=== PATIENT | male | born 1945 | race Caucasian/White ===

== ENCOUNTER 2019-11-09 19:51 | Inpatient (IN) | payer OTHER, MEDICARE ==
[~2019-11-09] VITALS: Ht 190.5 cm; Wt 127.0 kg
[~2019-11-09 19:51] MED LIST: Aspirin325 MG PO; CHLO25B PO; DIPH50 PO; DOXA2 PO; FISH1000; FISH1000 PO; FURO20 PO; Flunisolide25 ML NS; GLUC500 PO; Humulin N100 UNIT/1 SQ; INSLI100I SC; LISI20 PO; LORA10 PO; METF500 PO; METO100ER PO; METR70GEL; Multivitamin1 EAC1 PO; NIFE60ER PO; NOVOLIN R100 UNIT/2; Prilosec20 MG PO; SIMV40 PO; VANICREAM; WARF3 PO
[2019-11-09] MEDS ORDERED: AMOX875 PO (20:17)
[2019-11-09] MEDS ORDERED: ATOR20 PO (20:18)
[2019-11-09] MEDS ORDERED: Voltaren100 GM TOP (20:19)
[2019-11-09] MEDS ORDERED: DOXY100 PO (20:20)
[2019-11-09] MEDS ORDERED: FLUT1DIS2 INH (20:21)
[2019-11-09] MEDS ORDERED: PRED5 PO (20:22)
[2019-11-09] MEDS ORDERED: POTCHL20ER PO ×2 (20:22→22:40)
[2019-11-09] MEDS ORDERED: SPIR25 PO ×2 (20:23→22:39)
[2019-11-09] MEDS ORDERED: TAMS.4ER PO (20:23)
[2019-11-09 20:26] LABS: BASOPHILS ABSOLUTE AUTO 0.05 K/mm3 (0.00-0.23); BASOPHILS PERCENT AUTO 0 % (0-2); EOSINOPHILS PERCENT AUTO 0 % (0-6); Hematocrit 37.6 % (37.0-53.0); Hemoglobin 11.9 g/dL (13.5-17.5); IMMATURE GRAN ABSOLUTE AUTO 0.04 K/mm3 (0.00-0.10); IMMATURE GRAN PERCENT AUTO 0 % (0-1); LYMPHOCYTES ABSOLUTE AUTO 0.28 K/mm3 (0.84-5.20); LYMPHOCYTES PERCENT AUTO 3 % (21-46); MONOCYTES ABSOLUTE AUTO 0.57 K/mm3 (0.16-1.47); MONOCYTES PERCENT AUTO 5 % (4-13); Mean Corpuscular HGB 27.6 pg (26.0-34.0); Mean Corpuscular HGB Conc 31.6 g/dL (31.5-36.5); Mean Corpuscular Volume 87 fL (80-100); Mean Platelet Volume 9.4 fL (9.1-12.4); NEUTROPHILS ABSOLUTE AUTO 10.28 K/mm3 (1.96-9.15); NEUTROPHILS PERCENT AUTO 92 % (41-73); Platelet Count 199 K/mm3 (150-400); RDW Standard Deviation 45.1 fL (35.1-46.3); Red Blood Cell Count 4.31 M/mm3 (4.30-5.90); White Blood Cell Count 11.22 K/mm3 (4.00-11.30)
[2019-11-09 20:43] LABS: Albumin, Blood 2.5 g/dL (3.4-5.0); Albumin/Globulin Ratio 0.5 (0.8-1.8); Bilirubin, Total 0.9 mg/dL (0.1-1.0); Bun/Creatinine Ratio 18.8 (12.0-20.0); Calcium, Blood 8.4 mg/dL (8.5-10.1); Creatinine, Blood 1.65 mg/dL (0.60-1.20); Globulin, Blood 5.2 g/dL (2.2-4.0); Total Protein, Blood 7.7 g/dL (6.4-8.2)
[2019-11-09 21:56] LABS: International Normalized Ratio 2.94; Prothrombin Time Results 29.6 Sec (9.7-11.5)
[2019-11-09] MEDS ORDERED: WARF5 PO ×2 (22:00)
[2019-11-10 04:47] LABS: BASOPHILS ABSOLUTE AUTO 0.07 K/mm3 (0.00-0.23); BASOPHILS PERCENT AUTO 1 % (0-2); EOSINOPHILS PERCENT AUTO 0 % (0-6); Hematocrit 34.5 % (37.0-53.0); Hemoglobin 10.6 g/dL (13.5-17.5); IMMATURE GRAN ABSOLUTE AUTO 0.05 K/mm3 (0.00-0.10); IMMATURE GRAN PERCENT AUTO 1 % (0-1); LYMPHOCYTES ABSOLUTE AUTO 0.56 K/mm3 (0.84-5.20); LYMPHOCYTES PERCENT AUTO 5 % (21-46); MONOCYTES ABSOLUTE AUTO 0.68 K/mm3 (0.16-1.47); MONOCYTES PERCENT AUTO 6 % (4-13); Mean Corpuscular HGB 26.9 pg (26.0-34.0); Mean Corpuscular HGB Conc 30.7 g/dL (31.5-36.5); Mean Corpuscular Volume 88 fL (80-100); Mean Platelet Volume 9.3 fL (9.1-12.4); NEUTROPHILS ABSOLUTE AUTO 9.23 K/mm3 (1.96-9.15); NEUTROPHILS PERCENT AUTO 87 % (41-73); Platelet Count 189 K/mm3 (150-400); RDW Standard Deviation 45.5 fL (35.1-46.3); Red Blood Cell Count 3.94 M/mm3 (4.30-5.90); White Blood Cell Count 10.59 K/mm3 (4.00-11.30)
[2019-11-10 05:18] LABS: Bun/Creatinine Ratio 20.3 (12.0-20.0); Creatinine, Blood 1.53 mg/dL (0.60-1.20); Potassium, Blood 4.7 mmol/L (3.5-5.5)
[2019-11-10 13:35] LABS: CPK Creatine Kinase 187 U/L (39-308)
[2019-11-10 13:36] LABS: C-REACTIVE PROTEIN, EXT RANGE >19.000 mg/dL (0.000-0.300)
[2019-11-10 17:34] LABS: International Normalized Ratio 3.41
[2019-11-10 21:26] LABS: Vancomycin, Trough 18.4 ug/mL (5.0-10.0)
[2019-11-11 04:18] LABS: BASOPHILS ABSOLUTE AUTO 0.06 K/mm3 (0.00-0.23); BASOPHILS PERCENT AUTO 1 % (0-2); EOSINOPHILS ABSOLUTE AUTO 0.05 K/mm3 (0.00-0.68); EOSINOPHILS PERCENT AUTO 1 % (0-6); Hematocrit 32.9 % (37.0-53.0); Hemoglobin 10.2 g/dL (13.5-17.5); IMMATURE GRAN ABSOLUTE AUTO 0.05 K/mm3 (0.00-0.10); IMMATURE GRAN PERCENT AUTO 1 % (0-1); LYMPHOCYTES ABSOLUTE AUTO 0.66 K/mm3 (0.84-5.20); LYMPHOCYTES PERCENT AUTO 6 % (21-46); MONOCYTES ABSOLUTE AUTO 0.72 K/mm3 (0.16-1.47); MONOCYTES PERCENT AUTO 7 % (4-13); Mean Corpuscular HGB 27.1 pg (26.0-34.0); Mean Corpuscular Volume 88 fL (80-100); Mean Platelet Volume 9.2 fL (9.1-12.4); NEUTROPHILS ABSOLUTE AUTO 8.98 K/mm3 (1.96-9.15); NEUTROPHILS PERCENT AUTO 85 % (41-73); Platelet Count 180 K/mm3 (150-400); RDW Coefficient Variation 14.1 % (11.7-14.2); RDW Standard Deviation 45.1 fL (35.1-46.3); Red Blood Cell Count 3.76 M/mm3 (4.30-5.90); White Blood Cell Count 10.52 K/mm3 (4.00-11.30)
[2019-11-11 04:32] LABS: International Normalized Ratio 2.02
[2019-11-11 04:44] LABS: Albumin, Blood 1.9 g/dL (3.4-5.0); Anion Gap 5 mmol/L (6-16); Blood Urea Nitrogen 34 mg/dL (8-24); Bun/Creatinine Ratio 22.1 (12.0-20.0); CO2, Blood 25 mmol/L (21-32); Chloride, Blood 105 mmol/L (98-108); Creatinine, Blood 1.54 mg/dL (0.60-1.20); Glomerular Filtration Rate 47 (60-); Glucose, Blood 309 mg/dL (70-99); Phosphorus, Blood 2.4 mg/dL (2.5-4.9); Potassium, Blood 4.7 mmol/L (3.5-5.5); Sodium, Blood 135 mmol/L (136-145)
[2019-11-11 04:59] LABS: Prothrombin Time Results 20.8 Sec (9.7-11.5)
[2019-11-11 21:55] LABS: Vancomycin, Trough 21.2 ug/mL (5.0-10.0)
[2019-11-12 05:55] LABS: BASOPHILS ABSOLUTE AUTO 0.06 K/mm3 (0.00-0.23); BASOPHILS PERCENT AUTO 1 % (0-2); EOSINOPHILS ABSOLUTE AUTO 0.11 K/mm3 (0.00-0.68); EOSINOPHILS PERCENT AUTO 1 % (0-6); Hematocrit 32.5 % (37.0-53.0); Hemoglobin 9.8 g/dL (13.5-17.5); IMMATURE GRAN ABSOLUTE AUTO 0.07 K/mm3 (0.00-0.10); IMMATURE GRAN PERCENT AUTO 1 % (0-1); LYMPHOCYTES ABSOLUTE AUTO 0.93 K/mm3 (0.84-5.20); LYMPHOCYTES PERCENT AUTO 10 % (21-46); MONOCYTES ABSOLUTE AUTO 0.57 K/mm3 (0.16-1.47); MONOCYTES PERCENT AUTO 6 % (4-13); Mean Corpuscular HGB Conc 30.2 g/dL (31.5-36.5); Mean Corpuscular Volume 90 fL (80-100); Mean Platelet Volume 9.6 fL (9.1-12.4); NEUTROPHILS ABSOLUTE AUTO 7.51 K/mm3 (1.96-9.15); NEUTROPHILS PERCENT AUTO 81 % (41-73); Platelet Count 196 K/mm3 (150-400); RDW Coefficient Variation 14.2 % (11.7-14.2); RDW Standard Deviation 46.3 fL (35.1-46.3); Red Blood Cell Count 3.63 M/mm3 (4.30-5.90); White Blood Cell Count 9.25 K/mm3 (4.00-11.30)
[2019-11-12 06:09] LABS: Bun/Creatinine Ratio 25.2 (12.0-20.0); Calcium, Blood 8.2 mg/dL (8.5-10.1); Creatinine, Blood 1.59 mg/dL (0.60-1.20); Potassium, Blood 4.5 mmol/L (3.5-5.5)
[2019-11-13 05:12] LABS: BASOPHILS ABSOLUTE AUTO 0.07 K/mm3 (0.00-0.23); BASOPHILS PERCENT AUTO 1 % (0-2); EOSINOPHILS ABSOLUTE AUTO 0.21 K/mm3 (0.00-0.68); EOSINOPHILS PERCENT AUTO 2 % (0-6); Hemoglobin 10.2 g/dL (13.5-17.5); IMMATURE GRAN ABSOLUTE AUTO 0.08 K/mm3 (0.00-0.10); IMMATURE GRAN PERCENT AUTO 1 % (0-1); LYMPHOCYTES ABSOLUTE AUTO 1.04 K/mm3 (0.84-5.20); LYMPHOCYTES PERCENT AUTO 12 % (21-46); MONOCYTES ABSOLUTE AUTO 0.57 K/mm3 (0.16-1.47); MONOCYTES PERCENT AUTO 6 % (4-13); Mean Corpuscular HGB Conc 31.9 g/dL (31.5-36.5); Mean Corpuscular Volume 88 fL (80-100); Mean Platelet Volume 9.5 fL (9.1-12.4); NEUTROPHILS ABSOLUTE AUTO 6.93 K/mm3 (1.96-9.15); NEUTROPHILS PERCENT AUTO 78 % (41-73); Platelet Count 237 K/mm3 (150-400); RDW Coefficient Variation 14.1 % (11.7-14.2); RDW Standard Deviation 45.2 fL (35.1-46.3); Red Blood Cell Count 3.64 M/mm3 (4.30-5.90)
[2019-11-13 05:32] LABS: International Normalized Ratio 1.18; Prothrombin Time Results 12.5 Sec (9.7-11.5)
[2019-11-13 05:38] LABS: Anion Gap 8 mmol/L (6-16); Blood Urea Nitrogen 36 mg/dL (8-24); Bun/Creatinine Ratio 26.1 (12.0-20.0); CO2, Blood 24 mmol/L (21-32); Calcium, Blood 8.2 mg/dL (8.5-10.1); Chloride, Blood 106 mmol/L (98-108); Creatinine, Blood 1.38 mg/dL (0.60-1.20); Glomerular Filtration Rate 53 (60-); Glucose, Blood 303 mg/dL (70-99); Potassium, Blood 4.3 mmol/L (3.5-5.5); Sodium, Blood 138 mmol/L (136-145)
[2019-11-14 06:23] LABS: BASOPHILS ABSOLUTE AUTO 0.07 K/mm3 (0.00-0.23); BASOPHILS PERCENT AUTO 1 % (0-2); EOSINOPHILS ABSOLUTE AUTO 0.25 K/mm3 (0.00-0.68); EOSINOPHILS PERCENT AUTO 3 % (0-6); Hematocrit 32.1 % (37.0-53.0); Hemoglobin 10.1 g/dL (13.5-17.5); IMMATURE GRAN PERCENT AUTO 1 % (0-1); LYMPHOCYTES PERCENT AUTO 14 % (21-46); MONOCYTES PERCENT AUTO 7 % (4-13); Mean Corpuscular HGB 27.3 pg (26.0-34.0); Mean Corpuscular HGB Conc 31.5 g/dL (31.5-36.5); Mean Corpuscular Volume 87 fL (80-100); Mean Platelet Volume 9.2 fL (9.1-12.4); NEUTROPHILS ABSOLUTE AUTO 5.73 K/mm3 (1.96-9.15); NEUTROPHILS PERCENT AUTO 74 % (41-73); Platelet Count 273 K/mm3 (150-400); RDW Coefficient Variation 14.3 % (11.7-14.2); RDW Standard Deviation 45.1 fL (35.1-46.3); White Blood Cell Count 7.75 K/mm3 (4.00-11.30)
[2019-11-14 06:37] LABS: International Normalized Ratio 1.36; Prothrombin Time Results 14.3 Sec (9.7-11.5)
[2019-11-14 06:38] LABS: Bun/Creatinine Ratio 24.4 (12.0-20.0); Calcium, Blood 8.2 mg/dL (8.5-10.1); Creatinine, Blood 1.31 mg/dL (0.60-1.20); Potassium, Blood 4.3 mmol/L (3.5-5.5)
[2019-11-14] MEDS ORDERED: NOVOLIN N100 UNIT/2 SC (11:30)
[2019-11-14] MEDS ORDERED: AMOCLA875 PO (11:31)
[2019-11-14] MEDS ORDERED: PROBIOTIC250 MG PO (12:16)
[2019-11-14] MEDS ORDERED: AMOX500 PO (12:16)
[2019-11-14] MEDS ORDERED: AMOCLA500 PO (12:17)
== END 2019-11-14 13:20 | disposition home or self-care (01) | DRG 854 ==
LOC: ER 19:51 → ERHOLD 23:07 → PCU 23:07 → SURS 23:07 → PCU 11-10 01:23 → SURS 11-12 10:50
PROVIDERS: Internal Medicine; Nurse Practitioner Acute Care; Physician Assistant; Podiatrist; ADMIT Internal Medicine
PROC: 0Y6P0Z0 Detachment at Right 1st Toe, Complete, Open Approach (ICD-10-PCS; principal; 2019-11-11 08:00)
DX: A41.01 Sepsis due to Methicillin susceptible Staphylococcus aureus (principal); M86.171 Other acute osteomyelitis, right ankle and foot; I48.21 Permanent atrial fibrillation; N17.9 Acute kidney failure, unspecified; R65.20 Severe sepsis without septic shock; E11.621 Type 2 diabetes mellitus with foot ulcer; I12.9 Hypertensive chronic kidney disease with stage 1 through stage 4 chronic kidney disease, or unspecified chronic kidney disease; E11.22 Type 2 diabetes mellitus with diabetic chronic kidney disease; N18.3 Chronic kidney disease, stage 3 (moderate); E11.42 Type 2 diabetes mellitus with diabetic polyneuropathy; M10.9 Gout, unspecified; E11.628 Type 2 diabetes mellitus with other skin complications; L03.031 Cellulitis of right toe; Z79.4 Long term (current) use of insulin; E78.00 Pure hypercholesterolemia, unspecified; Z87.891 Personal history of nicotine dependence; K21.9 Gastro-esophageal reflux disease without esophagitis; N40.0 Benign prostatic hyperplasia without lower urinary tract symptoms
CPT/HCPCS: 36415; 73630; 73701; 80048; 80053; 80069; 80202; 82550; 82947; 83605; 85025; 85610; 85651; 86140; 87040; 87071; 87075; 87077; 87147; 87186; 87205; 88305; 88311; 93005; 93010; 93922; 94640; 94760; 96365; 96366; 96367; 97116; 97161; 97164; 97165; 97535; 99284-25; A9270-GY; J0696; J1815; J2250; J2370; J2405; J2704; J3010; J3370; J7030; J7050; J7512; Q9967

== ENCOUNTER 2020-05-05 16:31 | Observation (INO) | payer OTHER ==
[~2020-05-05] VITALS: Ht 190.5 cm; Wt 132.4 kg
[~2020-05-05 16:31] MED LIST changes: +AMOCLA500 PO; +AMOCLA875 PO; +AMOX500 PO; +AMOX875 PO; +DOXY100 PO; +FLUT1DIS2 INH; -LISI20 PO; -LORA10 PO; -METO100ER PO; -Multivitamin1 EAC1 PO; -NOVOLIN R100 UNIT/2; +POTCHL20ER PO; +PRED5 PO; +PROBIOTIC250 MG PO; -Prilosec20 MG PO; +SPIR25 PO; +WARF5 PO
[2020-05-05 16:56] LABS: BASOPHILS ABSOLUTE AUTO 0.03 K/mm3 (0.00-0.23); BASOPHILS PERCENT AUTO 0 % (0-2); EOSINOPHILS ABSOLUTE AUTO 0.07 K/mm3 (0.00-0.68); EOSINOPHILS PERCENT AUTO 1 % (0-6); Hematocrit 31.3 % (37.0-53.0); Hemoglobin 9.8 g/dL (13.5-17.5); IMMATURE GRAN ABSOLUTE AUTO 0.05 K/mm3 (0.00-0.10); IMMATURE GRAN PERCENT AUTO 1 % (0-1); LYMPHOCYTES ABSOLUTE AUTO 0.85 K/mm3 (0.84-5.20); LYMPHOCYTES PERCENT AUTO 10 % (21-46); MONOCYTES ABSOLUTE AUTO 0.65 K/mm3 (0.16-1.47); MONOCYTES PERCENT AUTO 8 % (4-13); Mean Corpuscular HGB 28.3 pg (26.0-34.0); Mean Corpuscular HGB Conc 31.3 g/dL (31.5-36.5); Mean Corpuscular Volume 91 fL (80-100); Mean Platelet Volume 10.1 fL (9.1-12.4); NEUTROPHILS ABSOLUTE AUTO 6.99 K/mm3 (1.96-9.15); NEUTROPHILS PERCENT AUTO 81 % (41-73); Platelet Count 236 K/mm3 (150-400); RDW Coefficient Variation 14.7 % (11.7-14.2); RDW Standard Deviation 48.9 fL (35.1-46.3); Red Blood Cell Count 3.46 M/mm3 (4.30-5.90); White Blood Cell Count 8.64 K/mm3 (4.00-11.30)
[2020-05-05 17:13] LABS: Alanine Aminotransfer (ALT/SGP 13 U/L (12-78); Albumin, Blood 2.7 g/dL (3.4-5.0); Albumin/Globulin Ratio 0.5 (0.8-1.8); Alk Phos 97 U/L (50-136); Anion Gap 6 mmol/L (6-16); Aspartate Aminotrans (AST/SGOT 29 U/L (12-37); Bilirubin, Total 1.4 mg/dL (0.1-1.0); Blood Urea Nitrogen 49 mg/dL (8-24); CO2, Blood 27 mmol/L (21-32); Calcium, Blood 8.9 mg/dL (8.5-10.1); Chloride, Blood 105 mmol/L (98-108); Creatinine, Blood 1.96 mg/dL (0.60-1.20); Globulin, Blood 5.1 g/dL (2.2-4.0); Glomerular Filtration Rate 36 (60-); Glucose, Blood 172 mg/dL (70-99); Potassium, Blood 4.4 mmol/L (3.5-5.5); Sodium, Blood 138 mmol/L (136-145); Total Protein, Blood 7.8 g/dL (6.4-8.2); Troponin I <0.015 ng/mL (0.000-0.040)
[2020-05-05 17:17] LABS: PCO2 Arterial 30.6 mmHg (35-45); PO2 Arterial 79.1 mmHg (80-100); pH Blood Arterial 7.53 (7.35-7.45)
[2020-05-05] MEDS ORDERED: ATOR20 PO (18:43)
[2020-05-05] MEDS ORDERED: ALOGLIPTIN12.5 M1 PO (18:44)
[2020-05-05] MEDS ORDERED: ALLO300 PO (18:44)
[2020-05-05] MEDS ORDERED: Voltaren100 GM TOP (18:44)
[2020-05-05] MEDS ORDERED: Flonase 0.05% N16 GM (18:45)
[2020-05-05] MEDS ORDERED: OXYC5 PO (18:46)
[2020-05-05] MEDS ORDERED: FURO40 PO (18:47)
[2020-05-05] MEDS ORDERED: NOVOLIN N100 UNIT/2 SC (18:49)
[2020-05-05] MEDS ORDERED: NOVOLIN R100 UNIT/2 SC (18:49)
[2020-05-05] MEDS ORDERED: ALLERCLEAR10 MG PO (18:50)
[2020-05-05] MEDS ORDERED: LISI20 PO (18:50)
[2020-05-05] MEDS ORDERED: METO50ER PO (18:51)
[2020-05-05] MEDS ORDERED: OMEP20ER PO (18:51)
[2020-05-05] MEDS ORDERED: XARELTO15 M1 PO (18:52)
[2020-05-05] MEDS ORDERED: SPIR25 PO (18:52)
[2020-05-05] MEDS ORDERED: Hair, Skin & N1 EACH PO (18:52)
[2020-05-05] MEDS ORDERED: TAMS.4ER PO (18:53)
[2020-05-05] MEDS ORDERED: CIDAFLEX TABLE1 EAC1 PO (18:58)
[2020-05-05] MEDS ORDERED: GLUCOSE4 GM PO (18:59)
[2020-05-05] MEDS ORDERED: Metrogel 1% 6060 GM TOP (18:59)
[2020-05-06 05:09] LABS: BASOPHILS ABSOLUTE AUTO 0.04 K/mm3 (0.00-0.23); BASOPHILS PERCENT AUTO 1 % (0-2); EOSINOPHILS ABSOLUTE AUTO 0.13 K/mm3 (0.00-0.68); EOSINOPHILS PERCENT AUTO 2 % (0-6); Hematocrit 28.7 % (37.0-53.0); Hemoglobin 8.8 g/dL (13.5-17.5); IMMATURE GRAN ABSOLUTE AUTO 0.04 K/mm3 (0.00-0.10); IMMATURE GRAN PERCENT AUTO 1 % (0-1); LYMPHOCYTES ABSOLUTE AUTO 1.23 K/mm3 (0.84-5.20); LYMPHOCYTES PERCENT AUTO 15 % (21-46); MONOCYTES ABSOLUTE AUTO 0.73 K/mm3 (0.16-1.47); MONOCYTES PERCENT AUTO 9 % (4-13); Mean Corpuscular HGB 27.8 pg (26.0-34.0); Mean Corpuscular HGB Conc 30.7 g/dL (31.5-36.5); Mean Corpuscular Volume 91 fL (80-100); Mean Platelet Volume 9.6 fL (9.1-12.4); NEUTROPHILS ABSOLUTE AUTO 5.89 K/mm3 (1.96-9.15); NEUTROPHILS PERCENT AUTO 73 % (41-73); Platelet Count 213 K/mm3 (150-400); RDW Coefficient Variation 14.7 % (11.7-14.2); Red Blood Cell Count 3.16 M/mm3 (4.30-5.90); White Blood Cell Count 8.06 K/mm3 (4.00-11.30)
--- NOTE | 2020-05-06 05:19 | NUR ---
SHIFT SUMMARY PT ER ADMIT THIS SHIFT FOR CHF EXAC. PT S/P RECENT LEFT KNEE REPLACEMENT. HE HAS BECOME SEVERELY DECONDITIONED AND IS UNABLE TO AMBULATE OR BEAR WEIGHT. PT HAS NOT HAD ANY COMPLAINTS OF PAIN, AND STATES PAIN ONLY WITH AMBULATION. LUNG SOUNDS ARE DIMINISHED T/O. RESP LABORED WITH EXERTION, HOWEVER SATS WNL ON RA. IV BUMEX ADMINISTERED. NO ACUTE CHANGES TO REPORT SINCE ADMISSION. BED IN LOWEST POSITION, CALL LIGHT WITHIN REACH.
[2020-05-06 05:33] LABS: Albumin, Blood 2.4 g/dL (3.4-5.0); Albumin/Globulin Ratio 0.5 (0.8-1.8); Bilirubin, Total 1.2 mg/dL (0.1-1.0); Bun/Creatinine Ratio 27.8 (12.0-20.0); Calcium, Blood 8.4 mg/dL (8.5-10.1); Creatinine, Blood 1.98 mg/dL (0.60-1.20); Globulin, Blood 4.7 g/dL (2.2-4.0); Potassium, Blood 4.2 mmol/L (3.5-5.5); Total Protein, Blood 7.1 g/dL (6.4-8.2)
--- NOTE | 2020-05-07 05:10 | NUR ---
HELPER TEACHER SUMMARY A/OX4, PLEASANT AND COOPERATIVE WITH CARE. MOD ASSIST WITH FWW. S/P L. TKA, SURGICAL DRESSINGS C/D/I. VSS. NO ACUTE CHANGES AT THIS TIME. BED IN LOWEST POSITION WITH CALL LIGHT IN REACH. WILL CONTINUE TO MONITOR AND REPORT TO ONCOMING RN.
[2020-05-07 05:29] LABS: BASOPHILS ABSOLUTE AUTO 0.05 K/mm3 (0.00-0.23); BASOPHILS PERCENT AUTO 1 % (0-2); EOSINOPHILS ABSOLUTE AUTO 0.14 K/mm3 (0.00-0.68); EOSINOPHILS PERCENT AUTO 2 % (0-6); Hematocrit 31.2 % (37.0-53.0); Hemoglobin 9.7 g/dL (13.5-17.5); IMMATURE GRAN ABSOLUTE AUTO 0.05 K/mm3 (0.00-0.10); IMMATURE GRAN PERCENT AUTO 1 % (0-1); LYMPHOCYTES ABSOLUTE AUTO 0.91 K/mm3 (0.84-5.20); LYMPHOCYTES PERCENT AUTO 11 % (21-46); MONOCYTES ABSOLUTE AUTO 0.78 K/mm3 (0.16-1.47); MONOCYTES PERCENT AUTO 10 % (4-13); Mean Corpuscular HGB 28.2 pg (26.0-34.0); Mean Corpuscular HGB Conc 31.1 g/dL (31.5-36.5); Mean Corpuscular Volume 91 fL (80-100); Mean Platelet Volume 9.8 fL (9.1-12.4); NEUTROPHILS ABSOLUTE AUTO 6.27 K/mm3 (1.96-9.15); NEUTROPHILS PERCENT AUTO 77 % (41-73); Platelet Count 219 K/mm3 (150-400); RDW Coefficient Variation 14.6 % (11.7-14.2); RDW Standard Deviation 48.5 fL (35.1-46.3); Red Blood Cell Count 3.44 M/mm3 (4.30-5.90)
[2020-05-07 06:04] LABS: Bun/Creatinine Ratio 29.9 (12.0-20.0); Calcium, Blood 8.8 mg/dL (8.5-10.1); Creatinine, Blood 2.14 mg/dL (0.60-1.20); Potassium, Blood 4.1 mmol/L (3.5-5.5)
--- NOTE | 2020-05-07 16:29 | NUR ---
Echocardiogram using 0.60ml of Definity contrast performed.
--- NOTE | 2020-05-07 16:44 | NUR ---
SHIFT SUMMARY ORIGINAL PLAN TO DC HOME CANCELLED TODAY PT NEEDS TO GO TO SNF PER PHYSICAL THERAPY EVAL. PT AWARE OF THE PLAN. AMBLULATED WITH THERAPY TWICE TODAY. LARGE BM TODAY. NO ACUTE CHANGES IN ASSESSMENT PRIOR AT THIS TIME. VS REVIEWED & STABLE. PT UP IN CHAIR. VISITING WITH HIS NEPHEW. PT DAUGHTER UPDATED ON PLAN OF CARE TODAY.
--- NOTE | 2020-05-08 04:53 | NUR ---
LAW REPORTER SUMMARY PT A&OX4, ABLE TO MAKE NEEDS KNOWN. PLEASANT AND COOPERATIVE TO CARE. NO C/O PAIN OR ANY DISCOMFORT THIS SHIFT. NO C/O CP, SOB OR N&V. PT CALM AND RESTED IN BED T/O SHIFT. ABLE TO USE URINAL INDEPENDENTLY, DENIES DYSURIA. PT CALM AND RESTED IN RECLINER AT THIS TIME. CALL LIGHT WITHIN REACH.
[2020-05-08 15:05] LABS: Influenza A, PCR Negative (NEGATIVE); Influenza B, PCR Negative (NEGATIVE); Resp Syncytial Virus, PCR Negative (NEGATIVE); SARS-Cov-2 (COVID-19) PCR, MMC Negative (NEGATIVE)
--- NOTE | 2020-05-08 16:39 | NUR ---
DISCHARGE PT DISCHARGED TO [facility]. THIS RN GAVE REPORT TO YONG FERNANDO AT [facility]. PT TRANSFERRED TO [facility] VIA WHEELCHAIR. BELONGINGS WITH PT. IV REMOVED WITHOUT DIFFICULTY.
== END 2020-05-08 16:17 ==
LOC: ER 16:31 → MEDS 16:32 → ER 20:47 → MEDS 21:08
PROVIDERS: Emergency Medicine; Internal Medicine; ADMIT Internal Medicine
DX: R06.00 Dyspnea, unspecified (principal); N17.9 Acute kidney failure, unspecified; E87.3 Alkalosis; I13.0 Hypertensive heart and chronic kidney disease with heart failure and stage 1 through stage 4 chronic kidney disease, or unspecified chronic kidney disease; I50.9 Heart failure, unspecified; N18.30 Chronic kidney disease, stage 3 unspecified; E11.22 Type 2 diabetes mellitus with diabetic chronic kidney disease; I48.20 Chronic atrial fibrillation, unspecified; E78.5 Hyperlipidemia, unspecified; D63.1 Anemia in chronic kidney disease; E78.00 Pure hypercholesterolemia, unspecified; Z88.8 Allergy status to other drugs, medicaments and biological substances; Z79.4 Long term (current) use of insulin; Z79.899 Other long term (current) drug therapy; Z79.01 Long term (current) use of anticoagulants; Z87.891 Personal history of nicotine dependence; Z20.822 Contact with and (suspected) exposure to COVID-19
CPT/HCPCS: 0241U; 36415; 36600; 71045; 78582; 80048; 80053; 82803; 82947; 83880; 84145; 84484; 85025; 85379; 93005; 93010; 93971; 94760; 96374; 96375; 96376; 97110; 97116; 97162; 97166; 97530; 97530-CO; 97535-CO; 98960; 99285-25; A9270; A9540; C8929; G0378; J1815; J1940; J2405; J3010; Q9957

== ENCOUNTER 2020-05-25 17:11 | Emergency (ER) | payer OTHER ==
[~2020-05-25] VITALS: Ht 190.5 cm; Wt 123.4 kg
[~2020-05-25 17:11] MED LIST changes: +ALLERCLEAR10 MG PO; +ALLO300 PO; +ALOGLIPTIN12.5 M1 PO; +ATOR20 PO; +CIDAFLEX TABLE1 EAC1 PO; +FURO40 PO; +Flonase 0.05% N16 GM; +GLUCOSE4 GM PO; +Hair, Skin & N1 EACH PO; +LISI20 PO; +METO50ER PO; +Metrogel 1% 6060 GM TOP; +NOVOLIN N100 UNIT/2 SC; +NOVOLIN R100 UNIT/2 SC; +OMEP20ER PO; +OXYC5 PO; +TAMS.4ER PO; +Voltaren100 GM TOP; +XARELTO15 M1 PO
[2020-05-25] MEDS ORDERED: FLUT.05NI (18:35)
== END 2020-05-25 20:25 | disposition home or self-care (01) ==
LOC: ER 17:11
DX: I95.1 Orthostatic hypotension (principal); I11.0 Hypertensive heart disease with heart failure; I50.9 Heart failure, unspecified; E11.9 Type 2 diabetes mellitus without complications; Z79.4 Long term (current) use of insulin; Z79.899 Other long term (current) drug therapy; Z79.01 Long term (current) use of anticoagulants; Z88.8 Allergy status to other drugs, medicaments and biological substances; I48.91 Unspecified atrial fibrillation; Z87.891 Personal history of nicotine dependence
CPT/HCPCS: 82947; 93005; 93010; 96360; 99284-25; J7030

== ENCOUNTER → 2021-04-29 | Outpatient (CLI) | payer OTHER ==
[~2021-04-29] MED LIST changes: +FLUT.05NI
== END | disposition home or self-care (01) ==
LOC: LAB SHORT 14:30
DX: L97.509 Non-pressure chronic ulcer of other part of unspecified foot with unspecified severity (principal)
CPT/HCPCS: 87070; 87205

== ENCOUNTER → 2021-05-12 | Outpatient (CLI) | payer OTHER | END | disposition home or self-care (01) | LOC: LAB SHORT 15:16 | DX: E11.69 Type 2 diabetes mellitus with other specified complication (principal); E11.51 Type 2 diabetes mellitus with diabetic peripheral angiopathy without gangrene; M86.171 Other acute osteomyelitis, right ankle and foot | CPT/HCPCS: 88305; 88311 ==

== ENCOUNTER → 2022-03-05 | Outpatient (CLI) | payer OTHER | END | disposition home or self-care (01) | LOC: LAB SHORT 14:24 → LAB 14:24 | DX: L97.509 Non-pressure chronic ulcer of other part of unspecified foot with unspecified severity (principal) | CPT/HCPCS: 87070; 87075; 87077; 87147; 87186; 87205 ==

== ENCOUNTER → 2022-04-13 | Outpatient (CLI) | payer OTHER ==
[2022-04-13 13:15] LABS: BASOPHILS ABSOLUTE AUTO 0.04 K/mm3 (0.00-0.23); BASOPHILS PERCENT AUTO 1 % (0-2); EOSINOPHILS ABSOLUTE AUTO 0.08 K/mm3 (0.00-0.68); EOSINOPHILS PERCENT AUTO 2 % (0-6); Hematocrit 40.8 % (37.0-53.0); Hemoglobin 13.3 g/dL (13.5-17.5); IMMATURE GRAN ABSOLUTE AUTO 0.01 K/mm3 (0.00-0.10); IMMATURE GRAN PERCENT AUTO 0 % (0-1); LYMPHOCYTES ABSOLUTE AUTO 0.41 K/mm3 (0.84-5.20); LYMPHOCYTES PERCENT AUTO 8 % (21-46); MONOCYTES ABSOLUTE AUTO 0.46 K/mm3 (0.16-1.47); MONOCYTES PERCENT AUTO 9 % (4-13); Mean Corpuscular HGB 30.9 pg (26.0-34.0); Mean Corpuscular HGB Conc 32.6 g/dL (31.5-36.5); Mean Corpuscular Volume 95 fL (80-100); Mean Platelet Volume 10.6 fL (9.1-12.4); NEUTROPHILS PERCENT AUTO 80 % (41-73); Platelet Count 138 K/mm3 (150-400); RDW Coefficient Variation 15.5 % (11.7-14.2); RDW Standard Deviation 53.2 fL (35.1-46.3)
[2022-04-13 13:33] LABS: Albumin, Blood 2.4 g/dL (3.4-5.0); Albumin/Globulin Ratio 0.5 (0.8-1.8); Bilirubin, Total 1.2 mg/dL (0.1-1.0); Bun/Creatinine Ratio 19.6 (12.0-20.0); Calcium, Blood 8.3 mg/dL (8.5-10.1); Creatinine, Blood 1.84 mg/dL (0.60-1.20); Globulin, Blood 4.6 g/dL (2.2-4.0); Potassium, Blood 4.7 mmol/L (3.5-5.5)
== END | disposition home or self-care (01) ==
LOC: LAB SHORT 12:50 → LAB 12:50
PROVIDERS: Internal Medicine Hematology & Oncology
DX: C22.0 Liver cell carcinoma (principal)
CPT/HCPCS: 80053; 82105; 85025

== ENCOUNTER → 2022-05-04 | Outpatient (CLI) | payer OTHER ==
[~2022-05-04] MED LIST changes: +Enulose10 GM/15 M PO; +SOAANZ20 M1 PO; +Vitamin D1000 UNI1 PO
== END ==
LOC: PLD 07:48 → LAB SHORT 07:48
DX: E10.69 Type 1 diabetes mellitus with other specified complication (principal); M86.9 Osteomyelitis, unspecified; L97.509 Non-pressure chronic ulcer of other part of unspecified foot with unspecified severity; E10.42 Type 1 diabetes mellitus with diabetic polyneuropathy; M79.672 Pain in left foot
CPT/HCPCS: 88305; 88311

== ENCOUNTER → 2022-05-25 | Outpatient (CLI) | payer OTHER | END | disposition home or self-care (01) | LOC: LAB SHORT 17:20 | DX: Z48.89 Encounter for other specified surgical aftercare (principal) | CPT/HCPCS: 87070; 87075; 87077; 87186; 87205 ==

== ENCOUNTER 2022-07-17 00:53 | Day surgery (SDC) | payer OTHER ==
[2022-07-17 16:45] LABS: BASOPHILS ABSOLUTE AUTO 0.05 K/mm3 (0.00-0.23); BASOPHILS PERCENT AUTO 1 % (0-2); EOSINOPHILS ABSOLUTE AUTO 0.08 K/mm3 (0.00-0.68); EOSINOPHILS PERCENT AUTO 1 % (0-6); Hematocrit 40.1 % (37.0-53.0); IMMATURE GRAN ABSOLUTE AUTO 0.06 K/mm3 (0.00-0.10); IMMATURE GRAN PERCENT AUTO 1 % (0-1); LYMPHOCYTES PERCENT AUTO 8 % (21-46); MONOCYTES ABSOLUTE AUTO 0.52 K/mm3 (0.16-1.47); MONOCYTES PERCENT AUTO 8 % (4-13); Mean Corpuscular HGB 30.8 pg (26.0-34.0); Mean Corpuscular HGB Conc 32.4 g/dL (31.5-36.5); Mean Corpuscular Volume 95 fL (80-100); Mean Platelet Volume 10.9 fL (9.1-12.4); NEUTROPHILS ABSOLUTE AUTO 4.96 K/mm3 (1.96-9.15); NEUTROPHILS PERCENT AUTO 80 % (41-73); Platelet Count 168 K/mm3 (150-400); RDW Standard Deviation 57.7 fL (35.1-46.3); Red Blood Cell Count 4.22 M/mm3 (4.30-5.90); White Blood Cell Count 6.17 K/mm3 (4.00-11.30)
[2022-07-17] MEDS ORDERED: FURO40 PO (16:55)
[2022-07-17] MEDS ORDERED: HUMULIN R100 UNIT/2 (16:56)
[2022-07-17 17:11] LABS: Albumin, Blood 1.9 g/dL (3.4-5.0); Albumin/Globulin Ratio 0.4 (0.8-1.8); Bun/Creatinine Ratio 23.8 (12.0-20.0); Calcium, Blood 8.2 mg/dL (8.5-10.1); Creatinine, Blood 3.53 mg/dL (0.60-1.20); Globulin, Blood 4.9 g/dL (2.2-4.0); Potassium, Blood 4.7 mmol/L (3.5-5.5); Total Protein, Blood 6.8 g/dL (6.4-8.2)
== END 2022-07-17 17:20 | disposition home or self-care (01) ==
LOC: ATC 00:53
PROVIDERS: Nurse Practitioner
DX: C22.0 Liver cell carcinoma (principal); N17.9 Acute kidney failure, unspecified; E11.9 Type 2 diabetes mellitus without complications; E78.00 Pure hypercholesterolemia, unspecified; I50.9 Heart failure, unspecified; I48.91 Unspecified atrial fibrillation; N18.30 Chronic kidney disease, stage 3 unspecified; K21.9 Gastro-esophageal reflux disease without esophagitis; I13.0 Hypertensive heart and chronic kidney disease with heart failure and stage 1 through stage 4 chronic kidney disease, or unspecified chronic kidney disease
CPT/HCPCS: 80053; 85025; 96360; J7030

== ENCOUNTER 2022-10-29 18:05 | Observation (INO) | payer OTHER ==
[~2022-10-29] VITALS: Ht 190.5 cm; Wt 102.5 kg
[~2022-10-29 18:05] MED LIST changes: +HUMULIN R100 UNIT/2
[2022-10-29 19:14] LABS: BASOPHILS ABSOLUTE AUTO 0.04 K/mm3 (0.00-0.23); BASOPHILS PERCENT AUTO 1 % (0-2); EOSINOPHILS ABSOLUTE AUTO 0.07 K/mm3 (0.00-0.68); EOSINOPHILS PERCENT AUTO 2 % (0-6); Hematocrit 45.7 % (37.0-53.0); Hemoglobin 14.8 g/dL (13.5-17.5); IMMATURE GRAN ABSOLUTE AUTO 0.02 K/mm3 (0.00-0.10); IMMATURE GRAN PERCENT AUTO 1 % (0-1); LYMPHOCYTES ABSOLUTE AUTO 0.62 K/mm3 (0.84-5.20); LYMPHOCYTES PERCENT AUTO 15 % (21-46); MONOCYTES ABSOLUTE AUTO 0.47 K/mm3 (0.16-1.47); MONOCYTES PERCENT AUTO 11 % (4-13); Mean Corpuscular HGB 31.8 pg (26.0-34.0); Mean Corpuscular HGB Conc 32.4 g/dL (31.5-36.5); Mean Corpuscular Volume 98 fL (80-100); Mean Platelet Volume 9.3 fL (9.1-12.4); NEUTROPHILS ABSOLUTE AUTO 2.99 K/mm3 (1.96-9.15); NEUTROPHILS PERCENT AUTO 71 % (41-73); Platelet Count 71 K/mm3 (150-400); RDW Coefficient Variation 18.6 % (11.7-14.2); RDW Standard Deviation 63.1 fL (35.1-46.3); Red Blood Cell Count 4.66 M/mm3 (4.30-5.90); White Blood Cell Count 4.21 K/mm3 (4.00-11.30)
[2022-10-29 19:43] LABS: Albumin, Blood 2.3 g/dL (3.4-5.0); Albumin/Globulin Ratio 0.6 (0.8-1.8); Bilirubin, Total 1.7 mg/dL (0.1-1.0); Bun/Creatinine Ratio 16.1 (12.0-20.0); Calcium, Blood 8.3 mg/dL (8.5-10.1); Creatinine, Blood 2.48 mg/dL (0.60-1.20); Globulin, Blood 4.1 g/dL (2.2-4.0); Potassium, Blood 4.4 mmol/L (3.5-5.5); Total Protein, Blood 6.4 g/dL (6.4-8.2)
[2022-10-29 20:55] LABS: Source, Urine Clean Catch
[2022-10-29 21:01] LABS: Appearance, Urine Hazy (Clear); Bilirubin, Urine Neg (Neg); Blood, Urine 5+ (Neg); Color, Urine Yellow (P-Yellow); Glucose Qualitative, Urine Neg (Neg); Ketones, Urine Neg (Neg); Leukocyte Esterase, Urine 1+ (Neg); Nitrite, Urine Pos (Neg); Protein, Urine 3+ (Neg); Specific Gravity, Urine 1.015 (1.003-1.022); Urobilinogen, Urine NORM (Normal)
[2022-10-29 21:28] LABS: Bacteria Mod /hpf; Red Blood Cells, Urine 25-50 /hpf (0-2); Squamous Epithelial Cells Rare /hpf (Few)
[2022-10-30 00:06] VITALS: BP 144/101
--- NOTE | 2022-10-30 02:08 | NUR ---
PATIENT IS A NEW ADMIT FROM THE ED. ALERT TO SELF AND FOUR PERSON TRANSFER FROM [facility] TO BED. BEDREST. ON ROOM AIR. MOSTLY NON-VERBAL AND DOES NOT ANSWER QUESTIONS WHEN ASKED. MULTIPLE WOUNDS TO SACRAL, BLE, AND SKIN TEARS TO BUE. BRUISNG T/O. WOUND PHOTOGRAPHS IN CHART. IV FENTANYL 50 MCG GIVEN PRIOR TO WOUND DRESSING CHANGES. NPO AND UTE MOUNTAIN. AGITATED AND CONFUSED TRYING TO GET OUT OF BED. HOSPITALIST DR MARTI ORDERED IV HALDOL 3 MG X ONE. ARRIVED WITH PAK FROM ED. ED RN REPORTS PATIENT WAS ON HOSPICE AND FAMILY TOOK OFF. NO FAMILY ON ADMIT. STOCK REPLENISHER HAS FLOAT MANAGER COMMUNICATION SITTING IN PATIENT ROOM AT THIS TIME. JEFF.
--- NOTE | 2022-10-30 05:46 | NUR ---
PATIENT RESTING IN BED. LESS AGITATION AT THIS TIME. NS INFUSING AT 75 mL/HR. NO SITTER AT THIS TIME. ALERT TO SELF. WCTM
[2022-10-30 07:47] VITALS: BP 130/87
--- NOTE | 2022-10-30 11:31 | NUR ---
Spoke with RN Jamison Odonnell and discussed case. 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 Family no longer able to care for Pt and Pt is no longer pursuing treatment. Belle is working with [facility] for placement with [facility]. Pt resting in bed and attempts to respond verbally with little success. Spoke with Primary RN Tania and discussed case. Pt having pain with Fentanyl being beneficial. Tania reports Fentanyl Patch may be beneficial. Called and spoke with Pt's spouse Sarah. Offered supportive conversation and therapeutic listening. Sarah reports being in agreement with D/C plan. Discussed comfort care for Pt during his hospital stya. Sarah would like Pt to be on comfort care. Spoke with Dr Salas and discussed case. Placed comfort care order, comfort care order set, Fentanyl Patch 25 mcg every 3 days for pain per V/O from Dr Salas. Palliative Care will remain available
--- NOTE | 2022-10-30 15:50 | NUR ---
Spiritual Care Attempted | Comfort Care Pt. is somnolent and mostly not responsive. Pts. daughters are present and graciously declined spiritual care. Some rapport is established. Family present verbalized gratitude for the spiritual care visit, and asked if this student dean could "keep them in my prayers."
[2022-10-30 15:54] LABS: Influenza A, PCR NEGATIVE (NEGATIVE); Influenza B, PCR NEGATIVE (NEGATIVE); Resp Syncytial Virus, PCR NEGATIVE (NEGATIVE); SARS-Cov-2 (COVID-19) PCR, MMC NEGATIVE (NEGATIVE)
--- NOTE | 2022-10-30 16:40 | NUR ---
Received call from YONG Swift that [facility] has accepted Pt. Pt will need POLST completed. Due to being late in the day, Pt may not D/C until tomorrow pending [facility]'s availability. Daughter who is POClifford is at bedside. Pt resting in bed with his eyes closed. Pt's daughters are at bedside. Discussed plan for Pt to D/C to [facility] with [facility]. Family in agreement. Assisted with completing POLST. Daughter Whitley (POClifford) signs POLST. Obtained signature for POLST from Dr Salas. Delivered copy of POLST to medical records via hospital tube system. Copy of POLST given to daughter Whitley. Original POLST given to YONG Kelly who will place in D/C packet for [facility]. Palliative Care will remain available
--- NOTE | 2022-10-30 17:07 | NUR ---
PT TRANSFERRED TO AIR BED FOR COMFORT AND STAGE 2 PRESSURE WOUND TO COCCYX. WOUNDS CLEANSED WITH NS AND PATTED DRY. APPLIED CALMOSEPTINE AND MEPILEX FOR COMFORT. PT BEGAN MOANING WITH REPOSITIONING AND CARES. MEDICATED WITH ROXANOL 20 MG.
--- NOTE | 2022-10-30 18:37 | NUR ---
SHIFT SUMMARY: PT UNRESPONSIVE EXCEPT TO PAIN. SOMETIMES VERBAL COMMANDS. PT ON COMFORT CARE. PT PAIN MANAGED AT THIS TIME WITH IV FENTANYL, ROXANOL.
--- NOTE | 2022-10-30 19:34 | NUR ---
PT NOT RESPONSIVETO QUESTIONS AND HAS NO ABILITY AT THIS TIME TO SMOKE OR USE IGNITION SOURCES. NO IGNITION SOURCES NOTED WHILE ROUNDING.
--- NOTE | 2022-10-31 03:40 | NUR ---
shift summery. pt resting in bed, pt appears to be comfortable. pt being given Roxinal oral for pain. pt turned and continues to rest. bed alarm financial analysis consultant light in reach.
--- NOTE | 2022-10-31 03:54 | NUR ---
pt unable to vu of fire safety in hospital.
--- NOTE | 2022-10-31 09:22 | NUR ---
PATIENT AT 909, VERIFIED BY AUSCULTAION BY 2 RN'S. ATTEMPTED TO CONTACT DAUGHTER MARIANNA AND PATIENT'S AND WS UNABLE TO REACH THEM. MESSAGE LEFT TO RETURN OHONE CALL. SHAMPOO ASSISTANT RERE NOTIFIED AND SHE WILL CONTACT [facility] AND [facility]. WILL CONTACT THE DOCTOR AND AWAIT RETURN PHONE CALL FROM FAMILY.
== END 2022-10-31 09:10 ==
LOC: ER 18:05 → MEDS 18:06
PROVIDERS: Emergency Medicine; Internal Medicine; Student in an Organized Health Care Education/Training Program; ADMIT Internal Medicine
DX: C22.0 Liver cell carcinoma (principal); E86.0 Dehydration; N18.4 Chronic kidney disease, stage 4 (severe); D69.6 Thrombocytopenia, unspecified; I12.0 Hypertensive chronic kidney disease with stage 5 chronic kidney disease or end stage renal disease; E11.22 Type 2 diabetes mellitus with diabetic chronic kidney disease; F43.10 Post-traumatic stress disorder, unspecified; Z20.822 Contact with and (suspected) exposure to COVID-19; Z88.8 Allergy status to other drugs, medicaments and biological substances; Z51.5 Encounter for palliative care; Z66 Do not resuscitate
CPT/HCPCS: 0241U; 80053; 81001; 82140; 85025; 87077; 87086; 87147; 87186; 96374; 96375; 96376; 99285; A9270; G0378; J1630; J2060; J2405; J3010; J7030